=== PATIENT | male | born 1990 | race Caucasian/White ===

== ENCOUNTER 2017-06-06 21:29 | Emergency (ER) | payer MEDICARE, BC ==
--- NOTE | 2017-06-06 22:19 | EDM.PDOC ---
ED HPI GENERAL MEDICAL PROBLEM - General Chief Complaint: ENT Problem Stated Complaint: pill stuck in esophagus Time Seen by Provider: 06/06/17 21:35 Source of Information: Reports: Patient History Limitations: Reports: No Limitations - History of Present Illness INITIAL COMMENTS - FREE TEXT/NARRATIVE: Pt. states that he has a large pill stuck in his esophagus. He states that he feels as though the pill is stuck in his upper esophagus, but is able to drink water and states that it passes. He states that when he initially drank water, he feels as though it didn't pass initially but states that it has improved. He states that he currently isn't experiencing any chest pain or shortness of breath. Onset: Today Onset Time: 21:00 Location: Reports: Other (esophagus) Quality: Reports: Pressure Severity: Mild throat Pain Score (Numeric/FACES): 3 - Related Data Allergies Allergy/AdvReac Type Severity Reaction Status Date / Time amoxicillin Allergy Rash Verified 06/06/17 22:11 lorazepam [From Ativan] Allergy Dizziness Verified 06/06/17 22:11 Penicillins Allergy Rash Verified 06/06/17 22:11 Home Meds: Home Meds Loratadine 10 mg PO DAILY 06/06/17 [History] Mesalamine [Lialda] 1.2 gm PO BID 06/06/17 [History] Ranitidine HCl [Zantac 75] 75 mg PO DAILY 06/06/17 [History] Timolol [Betimol] 1 drop EYEBOTH BID 06/06/17 [History] Travoprost [Travatan Z] 1 drop EYEBOTH DAILY 06/06/17 [History] ED ROS ENT - Review of Systems Review Of Systems: See Below Constitutional: Reports: No Symptoms HEENT: Reports: No Symptoms Respiratory: Reports: No Symptoms Cardiovascular: Reports: No Symptoms Endocrine: Reports: No Symptoms GI/Abdominal: Reports: Difficulty Swallowing : Reports: No Symptoms Musculoskeletal: Reports: No Symptoms Skin: Reports: No Symptoms Neurological: Reports: No Symptoms Psychiatric: Reports: No Symptoms Hematologic/Lymphatic: Reports: No Symptoms Immunologic: Reports: No Symptoms ED EXAM, ENT - Physical Exam Exam: See Below General Appearance: Alert Mouth/Throat: Normal Inspection, Normal Gums, Normal Lips, Normal Oropharynx, Normal Teeth Respiratory/Chest: No Respiratory Distress, Lungs Clear, Normal Breath Sounds, No Accessory Muscle Use, Chest Non-Tender Cardiovascular: Normal Peripheral Pulses, Regular Rate, Rhythm, No Edema, No Murmur GI/Abdominal: Normal Bowel Sounds, Soft, Non-Tender, No Organomegaly, No Distention Course - Vital Signs Last Recorded V/S: Last Vital Signs Temp 36.6 C 06/06/17 21:30 Pulse 114 H 06/06/17 21:30 Resp 16 06/06/17 21:30 BP 159/111 H 06/06/17 21:30 Pulse Ox 98 06/06/17 21:30 Departure - Departure Time of Disposition: 22:30 Disposition: Home, Self-Care 01 Condition: Good Clinical Impression: Impacted esophageal foreign body - Discharge Information Referrals: Machelle Jaimes ALCOHOLISM WORKER [Primary Care Provider] - Forms: ED Department Discharge Additional Instructions: Continue to drink plenty of fluids. Do not eat any solid food tonight. Soft diet tomorrow. Follow-up in clinic if needed.
== END 2017-06-06 22:40 | disposition home or self-care (01) ==
LOC: VM.ED 21:29
DX: T18.100A Unspecified foreign body in esophagus causing compression of trachea, initial encounter (principal); Z88.1 Allergy status to other antibiotic agents; Z88.0 Allergy status to penicillin; Z88.8 Allergy status to other drugs, medicaments and biological substances; Z79.899 Other long term (current) drug therapy
CPT/HCPCS: 99283; 99283-GF

== ENCOUNTER 2018-10-12 00:30 | Emergency (ER) | payer MEDICARE, BC ==
--- NOTE | 2018-10-12 00:40 | EDM.PDOC ---
ED HPI GENERAL MEDICAL PROBLEM - General Chief Complaint: ENT Problem Stated Complaint: Enlarged tongue; unable to open mouth Time Seen by Provider: 10/12/18 00:30 Source of Information: Reports: Patient, Family, Old Records, RN, RN Notes Reviewed History Limitations: Reports: No Limitations - History of Present Illness INITIAL COMMENTS - FREE TEXT/NARRATIVE: Patient is brought to the ED at [facility] by his mother. She states around 1030pm, the patient stated he was unable to open his mouth. She was also concerned the patient seems to be having "shaking jolts" intermittently. The patient's mother states she thinks it is from Zantac and Delzicol medications. The patient has been on both these medications for quite some time. The patient has a history of developmental delay and is under his mothers care for most needs. The mother seems confused as to the coarse of events prior to arrival. It is difficulty to understand exactly what she is here in the emergency room. Onset: Unknown/Unsure - Related Data Allergies Allergy/AdvReac Type Severity Reaction Status Date / Time amoxicillin Allergy Rash Verified 07/01/17 14:57 balsam magalis [From Anusol] Allergy Other Verified 07/01/17 14:57 bismuth subgallate Allergy Other Verified 07/01/17 14:57 [From Anusol] mineral oil [From Anusol] Allergy Other Verified 07/01/17 14:57 Penicillins Allergy Rash Verified 07/01/17 14:57 pramoxine [From Anusol] Allergy Other Verified 07/01/17 14:57 resorcinol [From Anusol] Allergy Other Verified 07/01/17 14:57 starch [From Anusol] Allergy Other Verified 07/01/17 14:57 zinc oxide [From Anusol] Allergy Other Verified 07/01/17 14:57 lorazepam [From Ativan] AdvReac Dizziness Verified 07/12/17 13:57 Home Meds: Home Meds Timolol [Betimol] 1 drop EYEBOTH BID 06/06/17 [History] Travoprost [Travatan Z] 1 drop EYEBOTH DAILY 06/06/17 [History] Mesalamine [Canasa] 1 supp RC BEDTIME 06/29/17 [History] Mesalamine [Delzicol] 2 cap PO TID 06/29/17 [History] Omeprazole/Sodium Bicarbonate [Omeprazole-Bicarb 40-1,100 Cap] 40 mg PO BID 02/26 [History] Past Medical History HEENT History: Reports: Glaucoma Cardiovascular History: Reports: Other (See Below) Other Cardiovascular History: Chest pain. Gastrointestinal History: Reports: Other (See Below) Other Gastrointestinal History: Colitis, rectal bleeding Psychiatric History: Reports: Developmental Delay Social & Family History - Family History Family Medical History: Noncontributory - Caffeine Use Caffeine Use: Reports: None ED ROS ENT - Review of Systems Review Of Systems: ROS reveals no pertinent complaints other than HPI. ED EXAM, ENT - Physical Exam Exam: See Below Exam Limited By: No Limitations General Appearance: Alert, No Apparent Distress Mouth/Throat: Normal Inspection, Normal Oropharynx, Normal Teeth, Other ( Patient was able to open mouth on first exam without any problems; tongue is normal size, no airway problems; patient was able to drink ice water without any issues) Neck: Supple Respiratory/Chest: No Respiratory Distress, Lungs Clear, Normal Breath Sounds Cardiovascular: Normal Peripheral Pulses, Regular Rate, Rhythm Neurological: Alert, Other (Patient did not speak during ER visit, but was able to follow all commands without any deficits) Skin: Warm, Dry, Intact, Normal Color Departure - Departure Time of Disposition: 01:02 Disposition: Home, Self-Care 01 Condition: Good Clinical Impression: Normal ENT exam - Discharge Information *PRESCRIPTION DRUG MONITORING PROGRAM REVIEWED*: Not Applicable *COPY OF PRESCRIPTION DRUG MONITORING REPORT IN PATIENT KRISTINA: Not Applicable Referrals: Machelle Jaimes NP [Ordering Only Provider] - Forms: ED Department Discharge Additional Instructions: 1. See Machelle Jaimes in the clinic next week - Problem List Review Problem List Initiated/Reviewed/Updated: Yes - Assessment/Plan Assessment:: Normal ENT assessment Plan: Assessment findings discussed with patient and mother. No acute emergency found. Recommend f/u appointment with PCP to discussed medication concerns.
== END 2018-10-12 01:24 | disposition home or self-care (01) ==
LOC: VM.ED 00:30
DX: Z01.10 Encounter for examination of ears and hearing without abnormal findings (principal); Z88.1 Allergy status to other antibiotic agents; Z88.0 Allergy status to penicillin; Z88.8 Allergy status to other drugs, medicaments and biological substances
CPT/HCPCS: 99282-GF; 99284

== ENCOUNTER 2025-01-30 21:03 | Emergency (ER) | payer MEDICARE, BC | END 2025-01-30 22:26 | disposition home or self-care (01) | LOC: VM.ED 21:03 | DX: B37.9 Candidiasis, unspecified (principal); Z88.0 Allergy status to penicillin; Z88.1 Allergy status to other antibiotic agents; Z88.8 Allergy status to other drugs, medicaments and biological substances; Z79.899 Other long term (current) drug therapy | CPT/HCPCS: 99282 ==